=== PATIENT | female | born 1965 | race Caucasian/White ===

== ENCOUNTER 2022-02-26 10:00 | Inpatient (IN) | payer OTHER ==
[~2022-02-26] VITALS: Ht 162.6 cm; Wt 71.2 kg
[2022-02-26] MEDS ORDERED: FLONASE16 GM (13:46)
[2022-02-26] MEDS ORDERED: TOPROL XL25 M1 PO (13:46)
[2022-02-26] MEDS ORDERED: WIXELA 250-501 EACH IH (13:47)
[2022-03-01] MEDS ORDERED: NORFLEX100MG (13:51)
[2022-03-04] MEDS ORDERED: INTESTINEX680 M1 PO (11:22)
[2022-03-04] MEDS ORDERED: ACETAMINOPHEN500 M2 PO (11:22)
[2022-03-04] MEDS ORDERED: NEURONTIN300 MG PO (11:22)
== END 2022-03-04 13:12 | disposition home or self-care (01) | DRG 330 ==
LOC: SURH 03-01 07:56 → O/R 03-01 07:56 → SURH 03-01 10:00
PROVIDERS: ADMIT Surgery; ATTEND Surgery
PROC: 0DBP4ZZ Excision of Rectum, Percutaneous Endoscopic Approach (ICD-10-PCS; 2022-03-01)
PROC: 0DTN4ZZ Resection of Sigmoid Colon, Percutaneous Endoscopic Approach (ICD-10-PCS; principal; 2022-03-01 22:30)
DX: K57.32 Diverticulitis of large intestine without perforation or abscess without bleeding (principal); K80.10 Calculus of gallbladder with chronic cholecystitis without obstruction; N73.6 Female pelvic peritoneal adhesions (postinfective)

== ENCOUNTER 2022-03-19 10:39 | Emergency (ER) | payer OTHER ==
[~2022-03-19] VITALS: Ht 162.6 cm; Wt 69.9 kg
[~2022-03-19 10:39] MED LIST: ACETAMINOPHEN500 M2 PO; FLONASE16 GM; INTESTINEX680 M1 PO; NEURONTIN300 MG PO; NORFLEX100MG; TOPROL XL25 M1 PO; WIXELA 250-501 EACH IH
== END 2022-03-19 22:21 | disposition home or self-care (01) ==
LOC: ER 10:39
DX: R10.84 Generalized abdominal pain (principal); N20.0 Calculus of kidney; N83.202 Unspecified ovarian cyst, left side; N83.201 Unspecified ovarian cyst, right side; Z88.6 Allergy status to analgesic agent; Z88.2 Allergy status to sulfonamides; Z88.8 Allergy status to other drugs, medicaments and biological substances

== ENCOUNTER 2023-08-26 11:06 | Outpatient (CLI) | payer OTHER | END 2023-08-26 11:13 | disposition home or self-care (01) | LOC: SONOGRAMA 11:06 | PROVIDERS: ATTEND Pathology Anatomic Pathology & Clinical Pathology | DX: D34 Benign neoplasm of thyroid gland (principal); E07.89 Other specified disorders of thyroid; E04.9 Nontoxic goiter, unspecified ==